=== PATIENT | male | born 1960 | race Caucasian/White ===

== ENCOUNTER → 2016-10-03 | Outpatient (CLI) | payer OTHER ==
[~2016-10-03] MED LIST: IOPAMIDOL (ISOVUE 370) 100 ML BTL IV ONE
== END ==
LOC: FIMAGING 16:18
PROVIDERS: ATTEND Internal Medicine
DX: R51 Headache (principal); R29.818 Other symptoms and signs involving the nervous system
CPT/HCPCS: Q9967